=== PATIENT | female | born 1990 | race Asian ===

== ENCOUNTER 2020-04-18 07:04 | Emergency (ER) | payer BC ==
[2020-04-18] MEDS ORDERED: Dexamethasone 10 MG/ML VIAL ONE (07:19)
[2020-04-18] MEDS ORDERED: diphenhydrAMINE 25 MG CAP ONE (07:19)
== END 2020-04-18 07:55 | disposition home or self-care (01) ==
LOC: ERS 07:04
DX: L50.9 Urticaria, unspecified (principal)
CPT/HCPCS: 96372; 99283; J1100; Q0163